=== PATIENT | female | born 1985 | race American Indian/Alaskan Native ===

== ENCOUNTER 2021-03-27 10:45 | Day surgery (SDC) | payer BC ==
[~2021-03-27 10:45] MED LIST: SODIUM CHLORIDE 0.9% 1000 ML 1,000 ML IV SCH
--- NOTE | 2021-03-27 13:16 | Anesthesia Day of Surgery ---
Anesthesia Day of Surgery - Day of Surgery Patient Examined: Yes Patient H&P Reviewed: Yes Patient is NPO: Yes
--- NOTE | 2021-03-27 13:17 | Anesthesia Consultation ---
Anesthesia Consult and Med Hx Date of service: 03/27/21 - Airway Anesthetic Teeth Evaluation: Good ROM Head & Neck: Adequate Mental/Hyoid Distance: Adequate Mallampati Class: Class II Intubation Access Assessment: Probably Good - Pre-Operative Health Status ASA Pre-Surgery Classification: ASA3 Proposed Anesthetic Plan: MAC - Pulmonary Hx Smoking: No Hx Sleep Apnea: No - Hematic Hx Sickle Cell Disease: No - Other Systems Hx Obesity: Yes (BMI 44.6)
[2021-03-27] MEDS ORDERED: propofoL 200 MG/20 ML VIAL IV ONE ×2 (13:18→13:34)
[2021-03-27] MEDS ORDERED: LIDOCAINE MPF (2%) 20 MG/1 ML VIAL 5 ML ONE (13:20)
--- NOTE | 2021-03-27 14:06 | Procedure Note ---
Date of procedure: 03/27/21 Pre-op diagnosis: Abdominal Pain/ Peptic Ulcer Disease/ Diarrhea/ colitis Post-op diagnosis: other (Mild to Moderate Erosive Esophagitis/Gastritis/R/O Celiac Disase/ R/O Microscopic Colitis/ R/O Ileitis) Procedure: EGD with Biopsy and Colonoscopy with Biopsy Anesthesia: MAC Estimated blood loss: minimal Pathology: list Specimen disposition: to lab Condition: stable Disposition: same day (Treat with PPI,prn Zofran,Welchol and OTC Probiotic. Avoid aspirin and NSAID for 5 days; otherwise resume previous medication and F/U in 1 to 2 weeks ([phone]).)
--- NOTE | 2021-03-27 14:11 | Operative Report ---
DATE OF SURGERY: 03/27/2021 PROCEDURE PERFORMED: EGD with biopsy. INDICATIONS: This is a 35-year-old slightly obese -[place] female who had been having nausea, vomiting, abdominal pain. EGD was done to make sure there was not any associated peptic ulcer disease. DESCRIPTION OF PROCEDURE: Procedure was done after getting informed consent with MAC anesthesia. The instrument was passed through the hypopharynx into the esophagus, which showed some [id number] erosive esophagitis. Biopsy was done from the distal as well as the mid esophagus to assess for the severity of the erosive esophagitis and to assess for any eosinophilic esophagitis. There was no peptic ulcer disease noted within the gastric or the duodenal lumen. The pylorus is patent. The duodenum in the first and second portion appeared normal. Biopsy was done from the second part of the duodenum to rule out for possible celiac disease. Additional biopsy was done from the gastric antrum, gastric body and angular incisura to rule out for H. pylori and atrophic gastritis. There was minimal bleeding associated with the biopsy and no complications associated with the procedure. ASSESSMENT: Nausea, vomiting, abdominal pain. No peptic ulcer disease noted. [id number] erosive esophagitis, gastritis, rule out celiac disease, rule out eosinophilic esophagitis. PLAN: To treat the patient with PPI. Also to give the patient Zofran for nausea, vomiting as well as Bentyl for the abdominal pain. Encouraged the patient to take probiotics. Have the patient avoid aspirin and aspirin-related products for the next few days and follow up in the office in 1-2 weeks' time. Since the patient also has diarrhea, colonoscopy will also be done for further assessment. Procedure was done in the GI lab with assistance of the GI lab team, which included the GI nurse, the biomedical instrument technician and with assistance of anesthesia. The patient will be asked to follow up in the office in 1-2 weeks' time. TID: [id number] RECEIPT: [id number] JUSTIN/ZAY
--- NOTE | 2021-03-27 14:26 | Operative Report ---
DATE OF SURGERY: 03/27/2021 PROCEDURE PERFORMED: Colonoscopy with biopsy. INDICATIONS: This is a 35-year-old obese -[place] female who had been having nausea, vomiting, abdominal pain and diarrhea. EGD did not show any peptic ulcer disease, but did show [id number] erosive esophagitis, gastritis. Colonoscopy was done to make sure there was not any significant lower GI pathology present. Initial rectal examination was unremarkable. DESCRIPTION OF PROCEDURE: Instrument was passed through the rectum onto the cecum, which was identified with ileocecal valve and appendiceal orifice. Visualization was fair to good. Mucosa was washed with copious amounts of water. The terminal ileum was intubated, showed normal mucosa. Biopsy was done to rule out for possible ileitis. Cecum was identified with ileocecal valve and the appendiceal orifice. Cecum, ascending colon, transverse colon, descending colon, sigmoid likewise showed normal mucosa. Random biopsies were done to rule out for possible microscopic colitis and the rectum showed some minor internal hemorrhoid. ASSESSMENT: Rule out microscopic colitis, rule out ileitis, minor internal hemorrhoid. PLAN: To treat the patient with Welchol for any diarrhea, Bentyl for any abdominal pain. Encouraged the patient to take probiotics. The patient will also be placed on PPI because of the EGD findings of esophagitis and gastritis as well as Zofran, asked to avoid aspirin and aspirin-related products for the next few days and follow up in the office in 1-2 weeks' time. The patient will otherwise be asked to resume all other previous home medication besides aspirin and aspirin-related products. Procedure was done in the GI lab with the assistance of the GI lab team, which included the GI nurse, the mechanical engineering technologist and with assistance of anesthesia. TID: [id number] RECEIPT: [id number] JUSTIN/IZABEL
[2021-03-27 14:57] VITALS: BP 135/87
== END 2021-03-27 15:20 | disposition home or self-care (01) ==
LOC: GIO 10:45
DX: R10.84 Generalized abdominal pain (principal); R19.7 Diarrhea, unspecified; R11.2 Nausea with vomiting, unspecified; K64.8 Other hemorrhoids; K29.70 Gastritis, unspecified, without bleeding; K20.90 Esophagitis, unspecified without bleeding; E66.9 Obesity, unspecified; Z79.899 Other long term (current) drug therapy; Z68.41 Body mass index [BMI] 40.0-44.9, adult
CPT/HCPCS: 43239; 45380; 81025; 88305; 88342; J2704; J3490; J7030; J7120; Q0162